=== PATIENT | female | born 1935 | race Caucasian/White ===

== ENCOUNTER 2017-11-23 12:29 | Observation (INO) | payer MEDICARE ==
[~2017-11-23] VITALS: Ht 160 cm; Wt 68.4 kg
[2017-11-23 13:06] LABS: BASOPHILS % (AUTO) 0.6 % (0.0-5.0); EOSINOPHILS % (AUTO) 1.1 % (0.0-8.0); HEMATOCRIT 36.9 % (36-48); LYMPHOCYTES % (AUTO) 37.8 % (21.0-51.0); MEAN CORPUSCULAR HEMOGLOBIN 33.3 pg (27.0-33.0); MEAN CORPUSCULAR HGB CONC 35.1 g/dL (32.0-36.0); MEAN CORPUSCULAR VOLUME 94.7 fL (79-99); MONOCYTES % (AUTO) 11.8 % (3.0-13.0); NEUTROPHILS % (AUTO) 48.7 % (40.0-77.0); PLATELET COUNT (AUTO) 269 K/uL (130-400); RED CELL DISTRIBUTION WIDTH 12.1 % (11.0-15.5)
[2017-11-23 13:22] LABS: ALBUMIN 3.8 g/dL (3.5-5.0); BILIRUBIN,DIRECT 0.1 mg/dL (0.0-0.3); BILIRUBIN,TOTAL 0.4 mg/dL (0.2-1.0); CREATININE 1.3 mg/dL (0.5-1.5); POTASSIUM 4.4 mmol/L (3.5-5.1); TOTAL PROTEIN, SERUM 6.7 g/dL (6.0-8.3)
[2017-11-23] MEDS ORDERED: SODIUM CHLORIDE 0.9% 1000ML 1,000 ML IV ONE (14:15)
[2017-11-23 15:59] VITALS: BP 141/65
[2017-11-23] MEDS ORDERED: albuterol (16:02)
[2017-11-23] MEDS ORDERED: CYAN50008 PO (16:02)
[2017-11-23] MEDS ORDERED: LISI10TA7 PO (16:02)
[2017-11-23] MEDS ORDERED: OMEG1CAP67 PO (16:02)
[2017-11-23] MEDS ORDERED: CHOL100018 PO (16:02)
[2017-11-23] MEDS ORDERED: GLUC-145 PO (16:02)
[2017-11-23] MEDS ORDERED: ALENDRONATE PO (16:02)
[2017-11-23] MEDS ORDERED: ASCO-360 PO (16:02)
[2017-11-23] MEDS ORDERED: LUTE1CAP5 PO (16:02)
[2017-11-23] MEDS ORDERED: LACT1CAP78 PO (16:02)
[2017-11-23] MEDS ORDERED: AEC81 PO (16:02)
[2017-11-23] MEDS ORDERED: HYDR25TA PO (16:02)
[2017-11-23] MEDS ORDERED: LIDOCAINE HCL-MPF 1% 2ML VIAL IJ PRN (17:45)
[2017-11-23] MEDS ORDERED: ONDANSETRON HCL 4 MG/2 ML VIAL IVP PRN (17:45)
[2017-11-23] MEDS ORDERED: POTASSIUM CHLORIDE 20MEQ/100ML 100 ML IV PRN (17:45)
[2017-11-23] MEDS ORDERED: ACETAMINOPHEN 325 MG TAB PO PRN (17:45)
[2017-11-23] MEDS ORDERED: POTASSIUM CHLORIDE 20 MEQ ERTAB PO PRN (17:45)
[2017-11-23] MEDS ORDERED: POTASSIUM CHLORIDE 10% ELIXIR 20 MEQ/15 ML UDCUP PO PRN (17:45)
[2017-11-23 19:22] VITALS: BP 120/65
[2017-11-23 23:12] VITALS: BP 133/58
[2017-11-24] MEDS: SODIUM CHLORIDE 0.9% 1000ML 1,000 ML IV SCH ×2 (03:17→11:16)
[2017-11-24 03:30] VITALS: BP 114/55
[2017-11-24 06:18] LABS: HEMATOCRIT 36.6 % (36-48); MEAN CORPUSCULAR HEMOGLOBIN 33.4 pg (27.0-33.0); MEAN CORPUSCULAR HGB CONC 35.2 g/dL (32.0-36.0); MEAN CORPUSCULAR VOLUME 94.9 fL (79-99); PLATELET COUNT (AUTO) 256 K/uL (130-400); RED BLOOD CELL COUNT(AUTO) 3.85 MIL/uL (4.00-5.50); WHITE BLOOD COUNT (AUTO) 5.6 K/uL (4.8-10.8)
[2017-11-24 06:27] LABS: CREATININE 0.9 mg/dL (0.5-1.5); POTASSIUM 3.9 mmol/L (3.5-5.1)
[2017-11-24] MEDS ORDERED: LIDOCAINE HCL-MPF 1% 2ML VIAL IVP PRN (07:00)
[2017-11-24] MEDS ORDERED: GUAIFENESIN-DM 200/20 MG 10 ML PO PRN (07:00)
[2017-11-24] MEDS ORDERED: POTASSIUM CHLORIDE 10% ELIXIR 20 MEQ/15 ML UDCUP PO PRN (07:00)
[2017-11-24] MEDS ORDERED: LACTULOSE 20 GM/30 ML UDCUP PO PRN (07:00)
[2017-11-24] MEDS ORDERED: HYDRALAZINE HCL 20 MG/ML VIAL IV PRN (07:00)
[2017-11-24] MEDS ORDERED: NITROGLYCERIN 0.4 MG SL TAB SL PRN (07:00)
[2017-11-24] MEDS ORDERED: MAG HYDROX/AL HYDROX/SIMETH ES 30 ML SUSP UDCUP PO PRN (07:00)
[2017-11-24] MEDS ORDERED: ONDANSETRON HCL 4 MG/2 ML VIAL IV PRN (07:00)
[2017-11-24] MEDS ORDERED: POTASSIUM CHLORIDE 20MEQ/100ML 100 ML IV PRN (07:00)
[2017-11-24] MEDS ORDERED: POTASSIUM CHLORIDE 20 MEQ ERTAB PO PRN (07:00)
[2017-11-24] MEDS ORDERED: ACETAMINOPHEN 325 MG TAB PO PRN ×2 (07:00)
[2017-11-24] MEDS ORDERED: ACETAMINOPHEN-CODEINE 300/30MG TAB PO PRN ×2 (07:00)
[2017-11-24] MEDS ORDERED: MORPHINE SULFATE 2 MG/ML 1ML SYG IVP PRN (07:00)
[2017-11-24 07:29] VITALS: BP 127/57
[2017-11-24] MEDS: **HM** OCUVITE PO SCH (09:00)
[2017-11-24] MEDS: CYANOCOBALAMIN (VITAMIN B-12) 1,000 MCG TABLET PO SCH ×2 (11:08→11:21)
[2017-11-24] MEDS: ASPIRIN 81 MG EC TAB PO SCH (11:09)
[2017-11-24] MEDS: FISH OIL 1000 MG/CAP PO SCH ×2 (11:09→18:25)
[2017-11-24] MEDS: GLUCOSAMINE-CHONDROITIN PO SCH ×2 (11:09→18:25)
[2017-11-24] MEDS: LISINOPRIL 10 MG TABLET PO SCH (11:09)
[2017-11-24 11:21] VITALS: BP 125/72
[2017-11-24] MEDS: ENOXAPARIN SODIUM 40 MG/0.4 ML SYRINGE SQ SCH (11:26)
[2017-11-24 16:13] VITALS: BP 133/58
[2017-11-24] MEDS ORDERED: ASCORBIC ACID 500 MG TAB PO SCH (17:00)
[2017-11-24] MEDS: **HM** VIT D3 1000 UNITS PO SCH (17:00)
[2017-11-24 19:05] VITALS: BP 112/48
[2017-11-24] MEDS ORDERED: LACTOBACILLUS RHAMNOSUS GG 1 EACH CAP.SPRINK PO SCH (21:00)
[2017-11-24 23:05] VITALS: BP 143/56
[2017-11-25 00:52] LABS: APPEARANCE,URINE Clear (CLEAR); BILIRUBIN,URINE Negative (NEGATIVE); COLOR,URINE Yellow (YELLOW); GLUCOSE, URINE (UA) Negative (NEGATIVE); KETONES,URINE Negative (NEGATIVE); LEUKOCYTE ESTERASE ,URINE Moderate (NEGATIVE); NITRATE,URINE Negative (NEGATIVE); OCCULT BLOOD,URINE Negative (NEGATIVE); PH,URINE 6.5 (5.0-8.0); PROTEIN,URINE Negative (NEGATIVE); UROBILINOGEN,URINE 0.2 mg/dL (0.2-1.0)
[2017-11-25 01:06] LABS: BACTERIA,URINE Rare /HPF (None Seen); RBC,URINE None Seen /HPF (0-1); SQUAMOUS EPITHELIAL CELL,UR None Seen /LPF (0-2)
[2017-11-25] MEDS: SODIUM CHLORIDE 0.9% 1000ML 1,000 ML IV SCH (02:44)
[2017-11-25 03:05] VITALS: BP 135/68
[2017-11-25 06:25] LABS: CREATININE 0.9 mg/dL (0.5-1.5); MAGNESIUM 1.9 mg/dL (1.80-2.40); POTASSIUM 3.9 mmol/L (3.5-5.1)
[2017-11-25] MEDS ORDERED: CEPH-578 PO (07:13)
[2017-11-25] MEDS ORDERED: CEFTRIAXONE SODIUM 1 GM IVP SCH (07:15)
[2017-11-25] MEDS ORDERED: CEFTRIAXONE 1GM/D5W 50ML 50 ML IV SCH (07:15)
[2017-11-25] MEDS: **HM** OCUVITE PO SCH (07:49)
[2017-11-25] MEDS: **HM** VIT D3 1000 UNITS PO SCH (07:49)
[2017-11-25 08:00] VITALS: BP 137/50
[2017-11-25] MEDS: GLUCOSAMINE-CHONDROITIN PO SCH (08:00)
[2017-11-25] MEDS: FISH OIL 1000 MG/CAP PO SCH (08:06)
[2017-11-25] MEDS: CYANOCOBALAMIN (VITAMIN B-12) 1,000 MCG TABLET PO SCH (08:06)
[2017-11-25] MEDS: ASPIRIN 81 MG EC TAB PO SCH (08:06)
[2017-11-25] MEDS: LISINOPRIL 10 MG TABLET PO SCH (08:06)
[2017-11-25] MEDS: ENOXAPARIN SODIUM 40 MG/0.4 ML SYRINGE SQ SCH (08:07)
== END 2017-11-25 10:25 | disposition home or self-care (01) ==
LOC: EDH 12:29 → 3AH 14:01
PROVIDERS: ADMIT Internal Medicine; ATTEND Internal Medicine
DX: E87.1 Hypo-osmolality and hyponatremia (principal); E86.0 Dehydration; I10 Essential (primary) hypertension; Z82.49 Family history of ischemic heart disease and other diseases of the circulatory system; Z90.710 Acquired absence of both cervix and uterus; N39.0 Urinary tract infection, site not specified
CPT/HCPCS: 36415 ×3; 80048 ×3; 80076; 81001; 83735; 84484; 85025; 85027; 93005; 96361 ×2; 96372 ×2; 96374; 97161; 99285; G0378 ×44; G8978; G8979; G8980; G8981; G8982; G8983; J0696; J1650 ×2; J7030 ×3

== ENCOUNTER → 2018-11-27 | Outpatient (CLI) | payer MEDICARE ==
[~2018-11-27] MED LIST: AEC81 PO; ALENDRONATE PO; ASCO-360 PO; CEPH-578 PO; CHOL100018 PO; CYAN50008 PO; GLUC-145 PO; LACT1CAP78 PO; LISI10TA7 PO; LUTE1CAP5 PO; OMEG1CAP67 PO; albuterol
== END | disposition home or self-care (01) ==
LOC: SHCH 08:02
PROVIDERS: ATTEND Internal Medicine Cardiovascular Disease
DX: I07.1 Rheumatic tricuspid insufficiency (principal)
CPT/HCPCS: 93306

== ENCOUNTER 2018-12-26 05:57 | Observation (INO) | payer MEDICARE ==
[2018-12-24 12:45] VITALS: BP 164/56
[2018-12-24 12:51] LABS: BILIRUBIN,URINE Negative (NEGATIVE); COLOR,URINE Yellow (YELLOW); GLUCOSE, URINE (UA) Negative (NEGATIVE); KETONES,URINE Negative (NEGATIVE); LEUKOCYTE ESTERASE ,URINE Moderate (NEGATIVE); NITRATE,URINE Negative (NEGATIVE); OCCULT BLOOD,URINE Negative (NEGATIVE); PH,URINE 7.5 (5.0-8.0); PROTEIN,URINE Negative (NEGATIVE); UROBILINOGEN,URINE 0.2 mg/dL (0.2-1.0)
[2018-12-24 12:52] LABS: APPEARANCE,URINE CLEAR (CLEAR)
[2018-12-24 12:54] LABS: BASOPHILS % (AUTO) 2.9 % (0.0-5.0); EOSINOPHILS % (AUTO) 2.2 % (0.0-8.0); HEMATOCRIT 36.4 % (36-48); LYMPHOCYTES % (AUTO) 29.6 % (21.0-51.0); MEAN CORPUSCULAR HEMOGLOBIN 32.7 pg (27.0-33.0); MEAN CORPUSCULAR VOLUME 98.9 fL (79-99); MONOCYTES % (AUTO) 9.5 % (3.0-13.0); NEUTROPHILS % (AUTO) 55.8 % (40.0-77.0); PLATELET COUNT (AUTO) 249 K/uL (130-400); RED BLOOD CELL COUNT(AUTO) 3.68 MIL/uL (4.00-5.50); RED CELL DISTRIBUTION WIDTH 12.6 % (11.0-15.5); WHITE BLOOD COUNT (AUTO) 5.8 K/uL (4.8-10.8)
[2018-12-24 12:56] LABS: CREATININE 1.2 mg/dL (0.5-1.5); POTASSIUM 4.7 mmol/L (3.5-5.1)
[2018-12-24 12:58] LABS: INR 1.02 (0.85-1.15); PARTIAL THROMBOPLASTIN TIME 27.7 SEC (26.3-35.5); PROTHROMBIN TIME 10.7 SEC (9.6-11.6)
[2018-12-24 13:21] LABS: BACTERIA,URINE Rare /HPF (None Seen); RBC,URINE 0-1 /HPF (0-1); SQUAMOUS EPITHELIAL CELL,UR Rare /HPF (0-2); WBC,URINE 0-1 /HPF (0-1)
[2018-12-26] VITALS (11 sets, daily range): BP systolic 118–197; BP diastolic 54–129
[~2018-12-26] VITALS: Ht 160 cm; Wt 69.2 kg
[~2018-12-26 05:57] MED LIST changes: +CALC-190 PO; -CEPH-578 PO; -CYAN50008 PO; +CYANOCOBALAMIN PO; +IPRA4AER IH; -LISI10TA7 PO; +LISI40TA4 PO; +MAGN400C PO; +SODIUM CHLORIDE 0.9% 500ML 500 ML IV SCH; +VERA120T13 PO; -albuterol
[2018-12-26] MEDS ORDERED: SODIUM CHLORIDE 0.9% 1000ML 1,000 ML IV ONE (06:27)
[2018-12-26] MEDS ORDERED: METO-391 PO (06:38)
[2018-12-26] MEDS ORDERED: LISI-613 PO (06:38)
[2018-12-26] MEDS ORDERED: IOHEXOL 350 MG/ML 100ML INFUS..BTL IV ONE (07:48)
[2018-12-26] MEDS ORDERED: LIDOCAINE HCL 2% 20ML ONE (07:48)
[2018-12-26] MEDS ORDERED: IOHEXOL-350 50ML VIAL IV ONE ×2 (07:48→08:34)
--- NOTE | 2018-12-26 07:50 | NUR ---
PROCEDURE PT TAKEN TO [employer] [employer]INE[employer] VIA BED FOR PROCEDURE. NO DISTRESS NOTED. SPOUSE AT BEDSIDE.
[2018-12-26] MEDS ORDERED: MIDAZOLAM HCL 1 MG/ML 2ML VIAL ONE (08:04)
[2018-12-26] MEDS ORDERED: HEPARIN SODIUM 1000UNIT/ML 10ML VIAL ONE (08:21)
[2018-12-26] MEDS ORDERED: CLOPIDOGREL BISULFATE 300 MG TAB ONE (08:56)
[2018-12-26] MEDS ORDERED: ASPIRIN 325MG EC TAB 325 MG TABLET.DR PO ONE (08:56)
[2018-12-26] MEDS ORDERED: ONDANSETRON HCL 4 MG/2 ML VIAL IVP PRN (09:15)
[2018-12-26] MEDS ORDERED: NITROGLYCERIN 50 MG/D5% WATER 1 BOT IV PRN (09:15)
[2018-12-26] MEDS ORDERED: TEMAZEPAM 30 MG CAP PO PRN (09:15)
[2018-12-26] MEDS ORDERED: ONDANSETRON HCL 4 MG/2 ML VIAL IVP SCH (09:15)
[2018-12-26] MEDS ORDERED: MORPHINE SULFATE 5 MG/ML VIAL IVP SCH ×2 (09:15)
[2018-12-26] MEDS ORDERED: ACETAMINOPHEN-CODEINE 300/30MG TAB PO PRN (09:15)
[2018-12-26] MEDS: METOPROLOL TARTRATE 25 MG TAB PO SCH ×2 (09:27→20:52)
[2018-12-26] MEDS: ACETAMINOPHEN-CODEINE 300/30MG TAB PO PRN ×2 (09:59→20:54)
[2018-12-26] MEDS ORDERED: LISINOPRIL 20 MG TABLET PO SCH (10:45)
--- NOTE | 2018-12-26 21:00 | NUR ---
PT HAD [facility]. BEDREST OVER AT 1930. PT IS STABLE. RIGHT GROIN VERIFIED. SOFT AND TENDER. NO PAIN STATED TO AREA. MINIMAL RED DRAINAGE NOTED DURING DAY SHIFT. PT STATE LOWER BACK PAIN FORM BEING IN BED ALL DAY. REQUESTING TYLENOL CODEINE PRN. ABLE TO AMBULATE WITH MINIMAL ASSIST. PULSES PALPABLE. ACTIVE BOWEL SOUNDS. LAST BM 12/25
[2018-12-27 03:39] VITALS: BP 151/70
[2018-12-27 04:19] LABS: HEMATOCRIT 34.8 % (36-48); MEAN CORPUSCULAR HEMOGLOBIN 33.2 pg (27.0-33.0); MEAN CORPUSCULAR VOLUME 97.5 fL (79-99); NUCLEATED RED BLOOD CELLS 0.1 % (0.0-0.19); PLATELET COUNT (AUTO) 213 K/uL (130-400); RED BLOOD CELL COUNT(AUTO) 3.57 MIL/uL (4.00-5.50); RED CELL DISTRIBUTION WIDTH 12.5 % (11.0-15.5); WHITE BLOOD COUNT (AUTO) 6.5 K/uL (4.8-10.8)
[2018-12-27 04:38] LABS: POTASSIUM 4.1 mmol/L (3.5-5.1)
[2018-12-27] MEDS ORDERED: CLOP75TA32 PO (06:51)
[2018-12-27] MEDS ORDERED: ATOR10 PO (06:51)
[2018-12-27] MEDS: METOPROLOL TARTRATE 25 MG TAB PO SCH (07:28)
[2018-12-27] MEDS ORDERED: PANTOPRAZOLE SODIUM 40 MG TABLET.DR PO SCH (07:30)
--- NOTE | 2018-12-27 08:00 | NUR ---
ASSESSMENT PT IS AWAKE AND ALERT SITTING UPRIGHT IN CHAIR. DENIES CP DENIES SOB DENIES NV NO COMPLAINTS. NO VISIBLE SIGNS OF DISTRESS NOTED AT THIS TIME. RIGHT GROIN DRESSING IN PLACE, MINIMAL SPOTTING, NO OOZING NO HEMATOMA NOTED. DENIES LEG PAIN BILATERALLY. CALL LIGHT WITHIN REACH.
[2018-12-27] MEDS ORDERED: LISINOPRIL 20 MG TABLET PO SCH (09:00)
[2018-12-27] MEDS ORDERED: ASPIRIN 81MG TAB.CHEW PO SCH (09:00)
[2018-12-27] MEDS ORDERED: CLOPIDOGREL BISULFATE 75 MG TAB PO SCH (09:00)
--- NOTE | 2018-12-27 09:32 | NUR ---
DC TO HOME PT AND FAMILY VERBALIZE DC INSTRUCTIONS UNDERSTANDING AGREE TO TAKE MEDICATIONS ORDERED AGREE TO FOLLOW UP WITH DR COURTNEY. PIV REMOVED CATH TIP INTACT, TELE PACK REMOVED. DOWN VIA WC WITH NURSE AIDE AND SPOUSE.
== END 2018-12-27 09:30 | disposition home or self-care (01) ==
LOC: DAH 05:57 → DAHIP 05:58 → 2AH 09:55
PROVIDERS: ADMIT Internal Medicine Cardiovascular Disease; ATTEND Internal Medicine Cardiovascular Disease
DX: I25.119 Atherosclerotic heart disease of native coronary artery with unspecified angina pectoris (principal); E78.5 Hyperlipidemia, unspecified; I10 Essential (primary) hypertension; I45.10 Unspecified right bundle-branch block; J44.9 Chronic obstructive pulmonary disease, unspecified; Z82.49 Family history of ischemic heart disease and other diseases of the circulatory system; Z87.891 Personal history of nicotine dependence; Z79.899 Other long term (current) drug therapy; Z90.710 Acquired absence of both cervix and uterus; Z79.01 Long term (current) use of anticoagulants
CPT/HCPCS: 36415 ×3; 71045; 80048 ×2; 80061; 81001; 85025; 85027; 85347; 85610; 85730; 93005 ×3; 93458; A4606; C1725; C1760; C1769; C1874; C1887; C1894; C9600; G0378 ×28; J1644 ×3; J2250; J3490; J7030; Q9965; Q9967 ×2; 99156; 99157

== ENCOUNTER 2019-10-03 07:47 | Observation (INO) | payer MEDICARE ==
[~2019-10-03] VITALS: Ht 160 cm; Wt 65.2 kg
[~2019-10-03 07:47] MED LIST changes: -ALENDRONATE PO; +ATOR10 PO; +CLOP75TA32 PO; +LISI-613 PO; -LISI40TA4 PO; -SODIUM CHLORIDE 0.9% 500ML 500 ML IV SCH; -VERA120T13 PO
[2019-10-03 08:39] LABS: BASOPHILS % (AUTO) 0.7 % (0.0-5.0); EOSINOPHILS % (AUTO) 0.5 % (0.0-8.0); HEMATOCRIT 31.5 % (36-48); LYMPHOCYTES % (AUTO) 13.1 % (21.0-51.0); MEAN CORPUSCULAR HEMOGLOBIN 32.9 pg (27.0-33.0); MEAN CORPUSCULAR HGB CONC 33.4 g/dL (32.0-36.0); MEAN CORPUSCULAR VOLUME 98.4 fL (79-99); MONOCYTES % (AUTO) 8.8 % (3.0-13.0); NEUTROPHILS % (AUTO) 76.9 % (40.0-77.0); PLATELET COUNT (AUTO) 373 K/uL (130-400); RED CELL DISTRIBUTION WIDTH 12.8 % (11.0-15.5); WHITE BLOOD COUNT (AUTO) 15.2 K/uL (4.8-10.8)
[2019-10-03 08:57] LABS: CREATININE 1.1 mg/dL (0.5-1.5); POTASSIUM 3.9 mmol/L (3.5-5.1)
[2019-10-03 09:04] LABS: ALBUMIN 3.1 g/dL (3.5-5.0); BILIRUBIN,DIRECT 0.1 mg/dL (0.0-0.3); BILIRUBIN,TOTAL 0.4 mg/dL (0.2-1.0); TOTAL PROTEIN, SERUM 7.1 g/dL (6.0-8.3)
[2019-10-03 09:23] LABS: B-TYPE NATRIURETIC PEPTIDE 523 pg/mL (0-100)
[2019-10-03] MEDS ORDERED: CEFTRIAXONE SODIUM 1 GM ONE (09:35)
[2019-10-03] MEDS ORDERED: METHYLPREDNISOLONE SOD SUCC 125MG/2ML VIAL ONE (09:35)
[2019-10-03] MEDS ORDERED: AZITHROMYCIN 250 MG TABLET PO ONE (09:36)
[2019-10-03] MEDS ORDERED: SODIUM CHLORIDE 0.9% 1000ML 1,000 ML IV ONE (09:37)
[2019-10-03] MEDS ORDERED: SODIUM CHLORIDE 0.9% 50 ML IV ONE (09:37)
[2019-10-03] MEDS ORDERED: IPRATROPIUM/ALBUTEROL SULFATE 3 ML SOLUTION IH ONE (09:42)
[2019-10-03] MEDS ORDERED: OSELTAMIVIR PHOSPHATE 75 MG CAP ONE (10:32)
[2019-10-03] MEDS ORDERED: DEXTROSE 50%-WATER 50 ML DISP.SYRIN IV PRN (11:00)
[2019-10-03] MEDS ORDERED: CLONIDINE HCL 0.1 MG TABLET PO PRN (11:00)
[2019-10-03] MEDS ORDERED: LACTULOSE 20 GM/30 ML UDCUP PO PRN (11:00)
[2019-10-03] MEDS: METHYLPREDNISOLONE SOD SUCC 125MG/2ML VIAL IVP SCH ×2 (11:00→18:17)
[2019-10-03] MEDS ORDERED: GLUCAGON 1MG KIT 1 MG ML IM PRN (11:00)
[2019-10-03] MEDS ORDERED: ACETAMINOPHEN 325 MG TAB PO PRN ×2 (11:00)
[2019-10-03] MEDS ORDERED: DIPHENHYDRAMINE HCL 25 MG CAPSULE PO PRN (11:00)
[2019-10-03] MEDS ORDERED: DiphenhydrAMINE HCL 50 MG/ML VIAL IVP PRN (11:00)
[2019-10-03] MEDS ORDERED: POTASSIUM CHLORIDE 20 MEQ ERTAB PO PRN (11:00)
[2019-10-03] MEDS ORDERED: ONDANSETRON HCL 4 MG/2 ML VIAL IVP PRN (11:00)
[2019-10-03] MEDS ORDERED: POTASSIUM CHLORIDE 10% ELIXIR 20 MEQ/15 ML UDCUP PO PRN (11:00)
[2019-10-03] MEDS ORDERED: LIDOCAINE HCL-MPF 1% 2ML VIAL IJ PRN (11:00)
[2019-10-03] MEDS ORDERED: NITROGLYCERIN 0.4 MG SL TAB SL PRN (11:00)
[2019-10-03] MEDS ORDERED: POTASSIUM CHLORIDE 20MEQ/100ML 100 ML IV PRN (11:00)
[2019-10-03] MEDS ORDERED: INSULIN R PO SSI SQ SCH (11:30)
[2019-10-03] MEDS ORDERED: FUROSEMIDE 10 MG/ML 2ML VIAL ONE (13:34)
[2019-10-03 13:45] VITALS: BP 105/44
[2019-10-03 14:40] LABS: ABG BASE EXCESS 0.3 mmol/L (-2.0-3.0); ABG OXYGEN SATURATION 93.4 % (95.0-99.0); ABG PCO2 32 mmHg (32-45)
[2019-10-03] MEDS ORDERED: CHOL200012 PO (15:11)
[2019-10-03] MEDS ORDERED: LISI40TA4 PO (15:11)
[2019-10-03] MEDS ORDERED: CALC600T12 PO (15:11)
[2019-10-03 15:43] VITALS: BP 113/54
[2019-10-03] MEDS: Cholecalciferol (Vitamin D3) 1,000 UNIT PO SCH (17:00)
[2019-10-03] MEDS: CALCIUM CARBON 500MG CHEW TAB PO SCH (18:16)
[2019-10-03] MEDS: ASCORBIC ACID 500 MG TAB PO SCH (18:16)
[2019-10-03] MEDS: FISH OIL 1000 MG/CAP PO SCH (18:16)
[2019-10-03] MEDS: IPRATROPIUM/ALBUTEROL SULFATE 3 ML SOLUTION IH PRN (18:46)
[2019-10-03] MEDS ORDERED: COMPOUND PO MISCELLANEOUS 1 EACH MISC MISC PRN (19:30)
[2019-10-03] MEDS ORDERED: LEVOFLOXACIN 500 MG/D5W 100 ML 100 ML IV SCH (20:00)
[2019-10-03 20:22] VITALS: BP 123/56
[2019-10-03] MEDS: MAGNESIUM OXIDE 400 MG TABLET PO SCH (20:45)
[2019-10-03] MEDS: ATORVASTATIN CALCIUM 10 MG TABLET PO SCH (20:45)
[2019-10-03] MEDS: LACTOBACILLUS RHAMNOSUS GG 1 EACH CAP.SPRINK PO SCH (20:45)
[2019-10-03] MEDS: FAMOTIDINE 20MG TAB 20 MG TAB PO SCH (20:45)
[2019-10-03] MEDS: OSELTAMIVIR SUSP 15 MG/ML (6 CAPS/29ML) PO SCH ×4 (20:46→20:48)
[2019-10-03] MEDS: [UNRECOGNIZED DRUG - OTHER] PO SCH (20:48)
[2019-10-04 00:15] VITALS: BP 132/63
[2019-10-04] MEDS: METHYLPREDNISOLONE SOD SUCC 125MG/2ML VIAL IVP SCH ×3 (02:45→20:35)
[2019-10-04 04:16] VITALS: BP 130/87
[2019-10-04 04:21] LABS: HEMATOCRIT 29.2 % (36-48); LYMPHOCYTES % (AUTO) 6.7 % (21.0-51.0); MEAN CORPUSCULAR HEMOGLOBIN 33.1 pg (27.0-33.0); MEAN CORPUSCULAR HGB CONC 33.4 g/dL (32.0-36.0); MEAN CORPUSCULAR VOLUME 99.1 fL (79-99); MONOCYTES % (AUTO) 0.9 % (3.0-13.0); NEUTROPHILS % (AUTO) 92.4 % (40.0-77.0); PLATELET COUNT (AUTO) 318 K/uL (130-400); RED BLOOD CELL COUNT(AUTO) 2.95 MIL/uL (4.00-5.50); RED CELL DISTRIBUTION WIDTH 12.7 % (11.0-15.5); WHITE BLOOD COUNT (AUTO) 13.8 K/uL (4.8-10.8)
[2019-10-04] MEDS: IPRATROPIUM/ALBUTEROL SULFATE 3 ML SOLUTION IH PRN ×2 (06:35→19:02)
[2019-10-04 07:00] VITALS: BP 138/59
[2019-10-04] MEDS: ASPIRIN 81 MG EC TAB PO SCH (08:46)
[2019-10-04] MEDS: FISH OIL 1000 MG/CAP PO SCH ×2 (08:46→17:36)
[2019-10-04] MEDS: FAMOTIDINE 20MG TAB 20 MG TAB PO SCH ×2 (08:46→19:50)
[2019-10-04] MEDS: LISINOPRIL 40 MG TABLET PO SCH (08:47)
[2019-10-04] MEDS: OSELTAMIVIR SUSP 15 MG/ML (6 CAPS/29ML) PO SCH ×4 (08:47→19:55)
[2019-10-04] MEDS: CLOPIDOGREL BISULFATE 75 MG TAB PO SCH (08:47)
[2019-10-04] MEDS ORDERED: CYANOCOBALAMIN PO SCH (09:00)
[2019-10-04 11:00] VITALS: BP 127/57
[2019-10-04] MEDS: GUAIFENESIN-DM 200/20 MG 10 ML PO PRN ×2 (13:56→19:49)
[2019-10-04 16:00] VITALS: BP 146/97
[2019-10-04] MEDS: Cholecalciferol (Vitamin D3) 1,000 UNIT PO SCH (17:00)
--- NOTE | 2019-10-04 17:13 | NUR ---
INITIAL: Met with pt this afternoon to discuss dcp. Pt mentions that [place] is a [place]. Pt mentions that she is currently living w her spouse in a park model. she is independent w ambulation and ADLs. She does not own any DME or receive services. Per pt her [place] Pt states that she feels safe and comfortable to return home. CM to continue to follow and wait for Md recommendations. Addendum: 10/04/19 at 1715 by JULIETH COKER CM Amended: Links added.
[2019-10-04] MEDS: CALCIUM CARBON 500MG CHEW TAB PO SCH (17:36)
[2019-10-04] MEDS: ASCORBIC ACID 500 MG TAB PO SCH (17:37)
[2019-10-04] MEDS: LACTOBACILLUS RHAMNOSUS GG 1 EACH CAP.SPRINK PO SCH (19:50)
[2019-10-04] MEDS: MAGNESIUM OXIDE 400 MG TABLET PO SCH (19:50)
[2019-10-04] MEDS: ATORVASTATIN CALCIUM 10 MG TABLET PO SCH (19:50)
[2019-10-04] MEDS: [UNRECOGNIZED DRUG - OTHER] PO SCH (19:55)
--- NOTE | 2019-10-04 19:55 | NUR ---
MEDS SHIFT ASSESSMENT DONE, PLEASE REFER TO CHART. DUE MEDS ADMINISTERED, TOLERATED WELL. KEPT RESTED AND COMFORTALBE IN BED WITH HOB ELEVATED. CALL LIGHT WITHIN REACH. WILL MONITOR PT. Addendum: 10/04/19 at 2332 by NEHEMIAH FLORES RN RN Amended: Links added.
[2019-10-04 20:00] VITALS: BP 126/54
--- NOTE | 2019-10-04 22:10 | NUR ---
ROUNDS PT STILL AWAKE, CLAIMS SHE HAD WALKED AROUND THE ROOM TO HAVE SOME ACTIVITY. NO DISTRESS NOTED. KEPT COMFORTABLE. CALL LIGHT WITHIN REACH. WILL MONITOR PT.
[2019-10-05 00:26] VITALS: BP 131/67
--- NOTE | 2019-10-05 01:47 | NUR ---
ROUNDS PT RESTING WELL, FAIRLY ASLEEP WITH RESPIRATIONS EVEN AND UNLABORED. NO NOTED DISTRESS. KEPT UNDISTURBED FOR NOW. WILL MONITOR PT. CALL LIGHT WITHIN REACH.
[2019-10-05] MEDS: GUAIFENESIN-DM 200/20 MG 10 ML PO PRN ×2 (02:33→11:07)
--- NOTE | 2019-10-05 02:33 | NUR ---
COUGH PT AWAKENS TO USE THE REST ROOM THEN HAD COUGHING EPISODES. MEDICATED WITH GUAIFENESIN PO. PT QUESTIONS IV ANTIBIOTICS AND SPIRITUAL MINISTER EXPLAINED DOSES AND FREQUENCY. PT VERBALIZES UNDERSTANDING. KEPT COMFORTABLE IN BED. ENCOURAGED TO GO BACK TO SLEEP.
[2019-10-05 04:03] VITALS: BP 136/70
[2019-10-05 04:30] LABS: HEMATOCRIT 29.2 % (36-48); MEAN CORPUSCULAR HEMOGLOBIN 32.9 pg (27.0-33.0); MEAN CORPUSCULAR HGB CONC 33.7 g/dL (32.0-36.0); MEAN CORPUSCULAR VOLUME 97.7 fL (79-99); PLATELET COUNT (AUTO) 377 K/uL (130-400); RED BLOOD CELL COUNT(AUTO) 2.99 MIL/uL (4.00-5.50); WHITE BLOOD COUNT (AUTO) 21.3 K/uL (4.8-10.8)
[2019-10-05 04:47] LABS: CREATININE 1.1 mg/dL (0.5-1.5)
[2019-10-05 04:49] LABS: B-TYPE NATRIURETIC PEPTIDE 291 pg/mL (0-100)
--- NOTE | 2019-10-05 06:00 | NUR ---
ROUNDS PT RESTING WELL. NO DISTRESS NOTED. KEPT RESTED. FOR MORE CARE.
[2019-10-05 07:00] VITALS: BP 137/59
[2019-10-05] MEDS: IPRATROPIUM/ALBUTEROL SULFATE 3 ML SOLUTION IH PRN (07:17)
--- NOTE | 2019-10-05 10:20 | NUR ---
SCRIPTS CALLED IN TO [facility] IN [facility] AT [phone]. REPORTED OFF TO PRIMARY NURSE, MARGARITA GARCIA.
[2019-10-05] MEDS: CLOPIDOGREL BISULFATE 75 MG TAB PO SCH (10:59)
[2019-10-05] MEDS: ASPIRIN 81 MG EC TAB PO SCH (10:59)
[2019-10-05] MEDS: FISH OIL 1000 MG/CAP PO SCH (10:59)
[2019-10-05 11:00] VITALS: BP 142/64
[2019-10-05] MEDS: METHYLPREDNISOLONE SOD SUCC 125MG/2ML VIAL IVP SCH (11:00)
[2019-10-05] MEDS: FAMOTIDINE 20MG TAB 20 MG TAB PO SCH (11:00)
[2019-10-05] MEDS: LISINOPRIL 40 MG TABLET PO SCH (11:00)
[2019-10-05] MEDS: OSELTAMIVIR SUSP 15 MG/ML (6 CAPS/29ML) PO SCH ×2 (11:01)
== END 2019-10-05 12:20 | disposition home or self-care (01) ==
LOC: EDH 07:47 → EDHIP 10:00 → 2AH 13:51
PROVIDERS: ADMIT Internal Medicine Critical Care Medicine; ATTEND Internal Medicine Critical Care Medicine
DX: J44.1 Chronic obstructive pulmonary disease with (acute) exacerbation (principal); J10.1 Influenza due to other identified influenza virus with other respiratory manifestations; J96.01 Acute respiratory failure with hypoxia; R79.89 Other specified abnormal findings of blood chemistry; I10 Essential (primary) hypertension; E78.5 Hyperlipidemia, unspecified; I25.10 Atherosclerotic heart disease of native coronary artery without angina pectoris; E86.0 Dehydration; I35.8 Other nonrheumatic aortic valve disorders; D64.9 Anemia, unspecified; Z87.891 Personal history of nicotine dependence; Z95.5 Presence of coronary angioplasty implant and graft; Z90.710 Acquired absence of both cervix and uterus; Z90.49 Acquired absence of other specified parts of digestive tract; Z79.82 Long term (current) use of aspirin; Z79.02 Long term (current) use of antithrombotics/antiplatelets; Z79.899 Other long term (current) drug therapy
CPT/HCPCS: 36415 ×3; 36600; 71045; 71046; 80048 ×3; 80076; 82550; 82803; 83605; 83880 ×2; 84484; 85025 ×2; 85027; 87040 ×2; 87804 ×2; 93005; 94640 ×5; 94664; 96365; 96375; 96376 ×2; 99284; G0378 ×49; J0696; J1940; J1956; J2930 ×6; J7030